=== PATIENT | female | born 1985 | race African-American/Black ===

== ENCOUNTER 2018-08-13 07:36 | Emergency (ER) | payer SELFPAY ==
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
[2018-08-13] MEDS ORDERED: SODIUM CHLORIDE 1,000 ML IV ONE (08:12)
[2018-08-13 08:30] VITALS: BMI 18.2
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
[2018-08-13 08:47] LABS: BASO % 0.5 % (0-2.0); HEMATOCRIT 35.7 % (32.4-45.2); HEMOGLOBIN 12.1 GM/dL (10.7-15.3); LYMPH % 19.2 % (8-40); MCH 30.8 pg (25.7-33.7); MCHC 33.9 g/dl (32.0-36.0); MEAN CELL VOLUME 91.1 fl (80-96); MEAN PLT VOLUME 9.9 fl (7.5-11.1); MONO % 5.4 % (3.8-10.2); NEUT % 74.9 % (42.8-82.8); PLATELET COUNT 231 K/MM3 (134-434); RBC 3.93 M/mm3 (3.60-5.2); RDW 15.1 % (11.6-15.6)
[2018-08-13 09:19] LABS: ALBUMIN 4.2 g/dl (3.4-5.0); ALK PHOS 64 U/L (45-117); ANION GAP 11 MMOL/L (8-16); BILIRUBIN,TOTAL 0.4 mg/dL (0.2-1); BLOOD UREA NITROGEN 11 mg/dL (7-18); CALCIUM 8.9 mg/dL (8.5-10.1); CHLORIDE 110 mmol/L (98-107); CO2 21 mmol/L (21-32); CREATININE 0.8 mg/dL (0.55-1.3); GLUCOSE,RANDOM 60 mg/dL (74-106); POTASSIUM 4.4 mmol/L (3.5-5.1); SGOT/AST 12 U/L (15-37); SGPT/ALT 13 U/L (13-61); SODIUM 142 mmol/L (136-145); TOT PROT 7.5 g/dl (6.4-8.2)
[2018-08-13 09:39] LABS: INR 1.08 (0.83-1.09); PROTHROMBIN TIME (PATIENT) 12.7 SEC (9.7-13.0)
[2018-08-13] MEDS ORDERED: SODIUM CHLORIDE 0.9% 500 ML INFUS.BAG IV ONE (09:54)
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
--- NOTE | 2018-08-13 13:30 | EKG ---
Test Reason : Blood Pressure : / mmHG Vent. Rate : 070 BPM Atrial Rate : 070 BPM P-R Int : 210 ms QRS Dur : 072 ms QT Int : 422 ms P-R-T Axes : 053 063 042 degrees QTc Int : 455 ms POOR DATA QUALITY, INTERPRETATION MAY BE ADVERSELY AFFECTED SINUS RHYTHM WITH 1ST DEGREE A-V BLOCK OTHERWISE NORMAL ECG NO PREVIOUS ECGS AVAILABLE Confirmed by MD STEPHANI, BELLA ([id number]) on 08/13/2018 1:30:15 PM Referred By: Confirmed By:BELLA STYLES MD
[2018-08-13] MEDS ORDERED: DEXTROSE 5%-NORMAL SALINE 1,000 ML IV SCH (17:00)
[2018-08-13] MEDS ORDERED: ACETAMINOPHEN 325 MG TABLET (FP) PO PRN (17:29)
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
[2018-08-14 01:39] LABS: URINE APPEARANCE SLCLOUDY; URINE BILIRUBIN NEGATIVE (<2.0 mg/dL); URINE COLOR YELLOW; URINE GLUCOSE (UA) NEGATIVE (NEGATIVE); URINE KETONE TRACE (NEGATIVE); URINE LEUK ESTERASE NEGATIVE (NEGATIVE); URINE NITRITE NEGATIVE (NEGATIVE); URINE PROTEIN NEGATIVE (NEGATIVE)
[2018-08-14 01:44] LABS: CALCIUM OXALATE CRYSTALS MODERATE /hpf (NONE SEEN); EPI CELLS RARE /HPF (FEW); URINE MUCUS RARE
[2018-08-14 02:10] LABS: COCAINE, UR NEGATIVE ng/ml (CUTOFF=300); METHADONE, UR NEGATIVE ng/ml (CUTOFF=300); OPIATES, URI NEGATIVE ng/ml (CUTOFF=300); PHENCYCLIDINE,URINE NEGATIVE ng/ml (CUTOFF=25); URINE AMPHETAMINES NEGATIVE ng/ml (CUTOFF=500); URINE BARBITURATES NEGATIVE ng/ml (CUTOFF=200); URINE BENZODIAZEPINES NEGATIVE ng/ml (CUTOFF=200)
--- NOTE | 2018-08-14 14:47 | PDOC ---
*Physical Exam - Vital Signs Last Vital Signs Temp Pulse Resp BP Pulse Ox 98.6 F 64 16 101/63 98 08/14/18 07:36 08/14/18 07:36 08/14/18 07:36 08/14/18 07:36 08/14/18 07:36 - Physical Exam Comments: 08/14/18 14:[address] Jimenez. Patient's mother has recanted her story. At this time there is no indication for to PC hold. Patient will be discharged with outpatient follow-up. ED Treatment Course - LABORATORY CBC & Chemistry Diagram: 08/13/18 08:38 08/13/18 08:38 - ADDITIONAL ORDERS Additional order review: 08/13/18 08:38 RBC 3.93 MCV 91.1 MCHC 33.9 RDW 15.1 MPV 9.9 Neutrophils % 74.9 Lymphocytes % 19.2 Monocytes % 5.4 Eosinophils % 0.0 Basophils % 0.5 - Medications Given in the ED: ED Medications Discontinued Medications Generic Name Dose Route Start Last Admin Trade Name Roula PRN Reason Stop Dose Admin Sodium Chloride 1,000 mls @ 1,000 mls/hr 08/13/18 08:12 08/13/18 09:48 Normal Saline - IV 08/13/18 09:11 1,000 mls/hr .Q1H ONE Administration Dextrose/Sodium Chloride 1,000 mls @ 100 mls/hr 08/13/18 17:00 08/13/18 17:10 D5-Ns - IV Not Given ASDIR HARIKA Sodium Chloride 1,000 ml 08/13/18 09:54 08/13/18 10:49 Normal Saline - IV 08/13/18 09:55 1,000 ml ONCE ONE Administration *DC/Admit/Observation/Transfer Diagnosis at time of Disposition: Homicidal behavior, Lactic acid acidosis Adjustment disorder Qualifiers: Adjustment disorder type: unspecified type Qualified Code(s): F43.20 - Adjustment disorder, unspecified - Discharge Dispostion Disposition: HOME Condition at time of disposition: Stable - Referrals Referrals: Sarah Jimenez MD [Staff Physician] - - Patient Instructions Printed Discharge Instructions: DI for Adjustment Disorder - Post Discharge Activity Forms/Work/School Notes: My Personal Safety Plan
[2018-08-14 15:06] VITALS: BP 143/114; PULSE 89; TEMP 98.3
== END 2018-08-14 15:00 | disposition home or self-care (01) ==
LOC: JER 07:36 → UNDOADMOB 11:10 → JERBED 11:10 → JER 08-14 15:00
DX: E87.2 Acidosis (principal); R45.850 Homicidal ideations
CPT/HCPCS: 36415; 70450-TC; 71045-TC-FY; 72125-TC; 80053; 80307; 81003; 81015; 82550; 82962; 83036; 83605; 84443; 84484; 84703; 85025; 85610; 86850; 86900; 86901; 87086; 93005; 93010; 99285-25; J7030

== ENCOUNTER 2019-07-13 11:41 | Emergency (ER) | payer OTHER ==
[2019-07-13 11:46] VITALS: BP 117/65; PULSE 77; TEMP 97.8; BMI 18.8
--- NOTE | 2019-07-13 13:10 | PDOC ---
History of Present Illness - General Chief Complaint: Urinary Problem Stated Complaint: PAIN Time Seen by Provider: 07/13/19 12:17 History Source: Patient Exam Limitations: Clinical Condition - History of Present Illness Initial Comments: 07/13/19 13:05 Patient with no significant past medical history present with complaint of 3 weeks history of urinary frequency, burning with urination and left flank pain. Patient reports symptoms has been Intermittent for over a year and has not followed up due to being incarcerated and after seeing PCP for many years. Denies fever, chills, nausea, vomiting. Denies any other symptoms. Denies taking anything for symptoms Is this a multiple visit Asthma Patient?: No Timing/Duration: other (3 weeks) Past History - Past Medical History Allergies/Adverse Reactions: Allergies Allergy/AdvReac Type Severity Reaction Status Date / Time No Known Allergies Allergy Verified 07/13/19 11:45 Home Medications: Ambulatory Orders Cephalexin Monohydrate [Keflex -] 500 mg PO BID 7 Days #14 capsule 07/13/19 Terconazole 1 applic VG BID 5 Days #1 cream.appl 07/13/19 Asthma: Yes COPD: No Kidney Stones: Yes - Psycho Social/Smoking Cessation Hx Smoking History: Current every day smoker Information on smoking cessation initiated: No Review of Systems - Review of Systems Able to Perform ROS?: Yes Is the patient limited Uzbek proficient: No Constitutional: No: Chills, Fever, Malaise HEENTM: No: Symptoms Reported, See HPI, Eye Pain, Blurred Vision, Tearing, Recent change in vision, Double Vision, Cataracts, Ear Pain, Ocular Prothesis, Ear Discharge, Nose Pain, Nose Congestion, Tinnitus, Nose Bleeding, Hearing Loss , Throat Pain, Throat Swelling, Mouth Pain, Dental Problems, Difficulty Swallowing, Mouth Swelling, Other Respiratory: No: Symptoms reported, See HPI, Cough, Orthopnea, Shortness of Breath, SOB with Exertion, SOB at Rest, Stridor, Wheezing, Productive cough, Hemoptysis, Other Cardiac (ROS): No: Symptoms Reported, See HPI, Chest Pain, Edema, Irregular Heart Rate, Lightheadedness, Palpitations, Syncope, Chest Tightness, Other ABD/GI: Yes: Symptoms Reported, See HPI, Abdominal cramping (left flank pain). No: Nausea, Vomiting : Yes: Symptoms Reported, See HPI, Frequency, Flank Pain (left flank ). No: Dysuria, Hematuria, Urgency Musculoskeletal: No: Symptoms Reported Integumentary: No: Symptoms Reported All Other Systems: Reviewed and Negative *Physical Exam - Vital Signs Last Vital Signs Temp Pulse Resp BP Pulse Ox 97.8 F 77 18 117/65 98 07/13/19 11:43 07/13/19 11:43 07/13/19 11:43 07/13/19 11:43 07/13/19 11:43 - Physical Exam 07/13/19 13:11 GENERAL: Well developed, well nourished. Awake and alert. No acute distress. HEENT: Normocephalic, atraumatic. PERRLA, EOMI. No conjunctival pallor. Sclera are non-icteric. Moist mucous membranes. Oropharynx is clear. NECK: Supple. Full ROM. CARDIOVASCULAR: Regular rate and rhythm. No murmurs, rubs, or gallops. Distal pulses are 2+ and symmetric. PULMONARY: No evidence of respiratory distress. Lungs clear to auscultation bilaterally. No wheezing, rales or rhonchi. ABDOMINAL: Soft. Mild tenderness to left lower quadrant abdominal and flank area . Non- distended. No rebound or guarding. No organomegaly. Normoactive bowel sounds. MUSCULOSKELETAL Normal range of motion at all joints. SKIN: Warm and dry. Normal capillary refill. No rashes. No jaundice. NEUROLOGICAL: Alert, awake, appropriate. Gait is normal without ataxia. PSYCHIATRIC: Cooperative. Good eye contact. Appropriate mood General Appearance: Yes: Nourished, Appropriately Dressed. No: Apparent Distress Medical Decision Making - Medical Decision Making 07/13/19 13:07 Patient with no significant past medical history present with complaint of 3 weeks history of urinary frequency, burning with urination and left flank pain. Patient reports symptoms has been Intermittent for over a year and has not followed up due to being incarcerated and after seeing PCP for many years. Denies fever, chills, nausea, vomiting. Denies any other symptoms. Denies taking anything for symptoms Exam significant for subjective left lower quadrant and flank pain without guarding or rebound. Diffuse hyperactive bowel sounds to left upper quadrant and left lower quadrant. Patient reported LMP June 18. Symptoms likely cystitis versus renal stone. UA, urine culture and urine hCG lab ordered. Spiral CT ordered to rule out kidney stone 02/09/20 13:50 UA shows mild WBC with hematuria. Urine test negative. Urine culture had to be canceled due to patient not able to give enough urine and would rather be treated empirically for UTI and follow-up with primary care. Patient is pending CT result 07/13/19 15:[address] shows small 2 mm nonobstructing stone. Patient stable for patient management on Keflex twice daily for UTI with PCP and urology follow-up. 07/13/19 15:50 Patient also request treatment for yeast infection as she feels she might have yeast infection. Topical ketoconazole prescription sent for patient for vulvar Tania Discharge - Discharge Information Problems reviewed: Yes Clinical Impression/Diagnosis: Dysuria, Vaginitis and vulvovaginitis Condition: Stable Disposition: HOME - Admission No - Additional Discharge Information Prescriptions: Cephalexin Monohydrate [Keflex -] 500 mg PO BID 7 Days #14 capsule Terconazole 1 applic VG BID 5 Days #1 cream.appl - Follow up/Referral Referrals: [facility] [place] [Provider Group] - Patient Discharge Instructions Patient Printed Discharge Instructions: DI for Urinary Tract Infection (UTI) Additional Instructions: Your urine shows small bacteria which will be treated with antibiotics. Increase fluid intake. Follow-up referred primary care as discussed - Post Discharge Activity
[2019-07-13 13:44] LABS: HYALINE CASTS 5 /lpf (0-8); URINE APPEARANCE CLOUDY; URINE BACTERIA 38.2 /hpf (NEGATIVE); URINE BILIRUBIN NEGATIVE (NEGATIVE); URINE COLOR YELLOW; URINE GLUCOSE (UA) NEGATIVE (NEGATIVE); URINE KETONE NEGATIVE (NEGATIVE); URINE LEUK ESTERASE 1+ (NEGATIVE); URINE NITRITE NEGATIVE (NEGATIVE); URINE PROTEIN 1+ (NEGATIVE); URINE RBC 510 /hpf (0-4); URINE WBC 28 /hpf (0-5)
[2019-07-13 13:49] LABS: HCG,QUALITATIVE URINE NEGATIVE
== END 2019-07-13 14:40 | disposition home or self-care (01) ==
LOC: JERFT 11:41
DX: N39.0 Urinary tract infection, site not specified (principal); B37.3 Candidiasis of vulva and vagina; N20.0 Calculus of kidney
CPT/HCPCS: 74176-TC; 81003; 84703; 99284-25

== ENCOUNTER 2020-05-22 04:35 | Emergency (ER) | payer OTHER ==
[2020-05-22 05:01] VITALS: BP 131/81; PULSE 87; TEMP 98.1; BMI 18.7
[2020-05-22] MEDS ORDERED: DOXYCYCLINE HYCLATE 100 MG CAPSULE PO ONE ×2 (06:09→06:21)
[2020-05-22] MEDS ORDERED: DOXYCYCLINE MONOHYDRATE 25 MG/5 ML SUSPENSION PO ONE (07:01)
[2020-05-22] MEDS ORDERED: ACETAMINOPHEN 500 MG TABLET (FP) PO ONE (07:02)
[2020-05-22] MEDS ORDERED: ACETAMINOPHEN 325 MG TABLET (FP) ONE (07:06)
== END 2020-05-22 08:45 | disposition home or self-care (01) ==
LOC: JER 04:35
DX: R06.02 Shortness of breath (principal)
CPT/HCPCS: 71046-TC-FY; 93005; 93010; 99285-25